=== PATIENT | male | born 2000 | race Two or more races ===

== ENCOUNTER 2023-08-23 17:27 | Emergency (ER) | payer SELFPAY ==
[~2023-08-23] VITALS: Ht 182.9 cm; Wt 93.3 kg
[2023-08-23 17:45] VITALS: BP 140/76; PULSE 53; RESP 16; TEMP 98.2; O2SAT 97
[2023-08-23 18:21] LABS: Basophils # (auto) 0 10 ^3/uL (0-0.2); Basophils % (auto) 0.3 % (0.0-2.0); Eosinophils # (auto) 0.1 10 ^3/uL (0-0.8); Eosinophils % (auto) 1.2 % (0.0-7.0); Hematocrit 48.5 % (41.0-53.0); Lymphocytes # (auto) 2.6 10 ^3/uL (0.4-5.4); Lymphocytes % (auto) 45.4 % (10.0-50.0); Mean Corpuscular Hemoglobin 28.9 pg (28.0-32.0); Mean Corpuscular Volume 87.4 fL (80.0-100.0); Monocytes # (auto) 0.4 10 ^3/uL (0-1.3); Monocytes % (auto) 7.1 % (0.0-12.0); Neutrophils # (auto) 2.7 10 ^3/uL (1.6-8.6); Nucleated Red Blood Cells % 0.1 %; Red Blood Cells 5.55 10^6/uL (4.5-5.90); Red Cell Distribution Width 13.8 % (11.8-14.3); White Blood Cell 5.8 10^3/uL (4.4-10.8)
[2023-08-23 18:52] LABS: Alanine Aminotransferase 17 U/L (7-40); Albumin 4.9 g/dL (3.2-4.8); Alkaline Phosphatase 74 U/L (46-116); Anion Gap 7 (5-15); Aspartate Aminotransferase 19 U/L (13-40); BUN/Creatinine Ratio 7.3 (10.0-20.0); Bilirubin, Total 0.5 mg/dL (0.2-1.0); Blood Urea Nitrogen 8 mg/dL (9-23); Calcium 9.5 mg/dL (8.7-10.4); Carbon Dioxide 27 mmol/L (20-30); Chloride 105 mmol/L (98-107); Glucose 86 mg/dL (74-106); Sodium 139 mmol/L (136-145); Total Protein 7.9 g/dL (5.7-8.2)
[2023-08-23] MEDS ORDERED: cefTRIAXone SOD 1,000 MG VL IM ONE (21:30)
[2023-08-23] MEDS ORDERED: KETOROLAC TROMETH 60MG/2ML VIAL IM ONE (21:30)
[2023-08-23] MEDS ORDERED: ONDANSETRON ODT 4 MG TAB PO ONE (21:30)
[2023-08-23] MEDS ORDERED: BACDST PO (21:31)
[2023-08-23] MEDS ORDERED: ZOFR4T PO (21:31)
[2023-08-23] MEDS ORDERED: CEPH500C PO (21:31)
[2023-08-23] MEDS ORDERED: HYDR-4902 PO (21:31)
== END 2023-08-23 22:24 | disposition home or self-care (01) ==
LOC: ER 17:27
DX: L05.91 Pilonidal cyst without abscess (principal); R51.9 Headache, unspecified
CPT/HCPCS: 36415; 70450; 80053; 85025; 96372; 99285; J0696; J1885; Q0162